=== PATIENT | female | born 1950 | race Caucasian/White ===

== ENCOUNTER 2018-02-06 16:09 | Observation (INO) ==
[2018-02-06] MEDS ORDERED: *HR* Metoprolol 5 MG/5 ML VIAL IVP ONE (16:21)
--- NOTE | 2018-02-06 16:25 | Emergency Department Note ---
Disposition Clinical Impression: Sinus tachycardia, Hypoxia Disposition: Admitted As Inpatient Condition: Good Time of Disposition: 17:00 (Dr Hernandez accepted her for borderline hypoxia and Tachyrrhythmia) Arrhythmia/Palpitations HPI - General Chief Complaint: ED General Medical Stated Complaint: fast heart rate at doctor Source: patient Limitations: no limitations - History of Present Illness HPI Narrative: Patient is a pleasant 67-year-old female with past medical history significant for HTN and ex tobacco abuse who is presenting to [facility] Emergency Room with a chief complaint off hypoxia and palpitation. Dr. Turpin called earlier and stated that she was hypoxic at 85 saturation on room air so he called the ambulance and sent her to the emergency room for evaluation. On arrival patient was found heartbeats at the 120 and she was totally has symptomatic. He denies using any street drugs or any stimulants and she is not aware of any prior history of racing heart like that. Patient denies any fever or chills. Pt also denies any eye pain or visual disturbances. There is no sore throat or facial or nasal congestion. There is no chest pain. No shortness of breath or cough. There is no abdominal pain, nausea, vomiting or diarrhea. No dysuria or flank pain. There is no muskulo-skeletal pain, arthralgia or back pain. Patient also denies rash or pruritus. There is no neurological manifestations, no headache, no vertigo or weakness. The patient also denies any depression, hallucinations and there are no homicidal or suicidal ideations. There is no polyuria or polydipsia. There is no easy bruising or bleeding. Review of other systems is otherwise negative except above. Pt Subjective Complaint: "heart racing" Onset (ago): hour(s) Duration: constant Severity: moderate - Related Data Home Medications Medication Instructions Recorded Confirmed Ergocalciferol (VITAMIN D2) 50,000 unit PO 2XW 02/06/18 02/06/18 [Vitamin D2] Hydrochlorothiazide [Microzide] 12.5 mg PO DAILY 02/06/18 02/06/18 Hydrocodone/Acetaminophen 1 each PO TID 02/06/18 02/06/18 [Hydrocodone-Acetamin 10-300 mg] Omeprazole [PriLOSEC] 20 mg PO DAILY 02/06/18 02/06/18 Potassium Chloride [Klor-Con 10 meq PO DAILY 02/06/18 02/06/18 Sprinkle] clonazePAM [Clonazepam] 0.5 mg PO TID 02/06/18 02/06/18 Allergies Allergy/AdvReac Type Severity Reaction Status Date / Time No Known Allergies Allergy Verified 05/03/17 18:33 All systems ED: reviewed and negative except as stated. Review of Systems: As Per HPI Constitutional: Denies: fever, chills Eyes: Denies: eye pain, eye discharge ENT ED: Denies: ear pain, throat pain Cardiovascular: Reports: palpitations. Denies: chest pain, dyspnea on exertion Respiratory: Denies: cough, dyspnea Gastrointestinal: Denies: abdominal pain, nausea, vomiting Genitourinary: Denies: urgency, dysuria, frequency Musculoskeletal: Denies: back pain, neck pain, joint swelling Past Medical History - Past Medical History Medical history: Reports: hypertension Psychiatric history: Reports: anxiety - Social History Smoking Status: Never smoker Smokeless Tobacco Status: No Alcohol use: Reports: none Drug use: Reports: none Physical Exam - General Limitations: no limitations General appearance: alert, in no apparent distress - Head Head exam: atraumatic, normocephalic, normal inspection - Eye Eye exam: Present: normal appearance, PERRL, EOMI - Expanded Eye Exam Pupils: Left: reactive - ENT ENT exam: normal exam, normal oropharynx, mucous membranes moist - Expanded ENT Exam External ear exam: Present: normal external inspection Mouth exam: Present: normal external inspection Teeth exam: Present: normal inspection Throat exam: Present: normal inspection - Neck Neck exam: Present: normal inspection, full ROM, trachea midline - Chest Chest inspection: Present: normal inspection, symmetric chest wall rise, other ( Became hypoxic with exertion to the mid 80s when she walked to the bathroom) - Respiratory Respiratory exam: Present: normal lung sounds bilaterally - Cardiovascular Cardiovascular exam: Present: regular rate, tachycardia, normal heart sounds - Abdominal Exam Abdominal exam: Present: soft, Non-Tender. Absent: tenderness, distention, guarding, rebound, rigidity - Extremities Exam Extremities exam: Present: normal inspection, full ROM. Absent: tenderness, pedal edema - Expanded Upper Extremity Exam Shoulder exam: Present: normal inspection, full ROM Arm exam: Present: normal inspection, full ROM Elbow exam: Present: normal inspection, full ROM Forearm/Wrist exam: Present: normal inspection, full ROM Hand exam: Present: normal inspection, full ROM Vascular exam: Normal: capillary refill, radial pulse - Expanded Lower Extremity Exam Hip/Pelvis exam: Present: normal inspection, full ROM Upper leg exam: Present: normal inspection, full ROM Knee exam: Present: normal inspection, full ROM Lower leg exam: Present: normal inspection, full ROM Ankle exam: Present: normal inspection, full ROM Foot/toe exam: Present: normal inspection, full ROM Neurovascular/Tendon exam: Absent: motor deficit, sensory deficit, tendon deficit - Back Exam Back exam: Present: normal inspection, full ROM. Absent: tenderness - Neurological Exam Neurological exam: Present: alert, oriented X3 - Expanded Neurological Exam Patient oriented to: Present: person, place, time Coma Scale Eye Opening: Spontaneous Coma Scale Motor Response: Obeys Commands Coma Scale Verbal Response: Oriented Coma Scale Total: 15 - Psychiatric Psychiatric exam: Present: normal affect, normal mood - Skin Skin exam: Present: warm, dry, intact, normal color Course Vital Signs Temperature 100.9 F H 02/06/18 16:13 Pulse Rate 136 02/06/18 16:13 Respiratory Rate 16 02/06/18 16:13 Blood Pressure 139/86 02/06/18 16:13 O2 Sat by Pulse Oximetry 93 02/06/18 16:13 Temperature 100.9 F H 02/06/18 16:13 Pulse Rate 106 02/06/18 18:42 Respiratory Rate 16 02/06/18 18:42 Blood Pressure 119/87 02/06/18 18:42 O2 Sat by Pulse Oximetry 92 02/06/18 18:42 Oxygen Delivery Oxygen Delivery Room Air Arrhythmia/Palpitations - [facility] Narrative Medical decision making narrative: Stated cardiopulmonary monitoring Stat labetalol - Differential Diagnosis Differential Diagnosis: Likely: palpitations, anxiety, sinus tachycardia, supraventricular tachycardia, undetermined arrhythmia - Medical Records Medical records reviewed: Yes I reviewed the patient's medical records. - Lab Data Lab results reviewed: Yes I reviewed the patient's lab results. Result diagrams: 02/06/18 16:41 02/06/18 16:41 Lab Results 02/06/18 02/06/18 02/06/18 Range/Units 16:41 16:41 16:41 WBC 9.8 (4.3-11.1) K/mcL RBC 4.65 (3.82-4.97) M/mcL Hgb 12.7 (11.5-15.4) g/dL Hct 38.5 (35.3-44.9) % MCV 82.8 L (83.0-100.0) fL MCH 27.3 L (28.0-33.3) pg MCHC 33.0 (31.6-35.5) g/dL RDW 13.0 (11.5-14.5) % Plt Count 333 (140-400) K/mcL MPV 9.4 (9.4-12.4) fL Immature Gran % 0.5 (0-4) % Seg Neutrophils % 69.1 % Lymphocytes % 23.8 % Monocytes % 4.5 % Eosinophils % 1.6 % Basophils % 0.5 % Neutrophils # 6.8 (1.6-8.9) K/mcL Lymphocytes # 2.3 (0.6-4.6) K/mcL Monocytes # 0.4 (0.0-1.3) K/mcL Eosinophils # 0.2 (0.0-0.6) K/mcL Basophils # 0.1 (0.0-0.2) K/mcL PT 13.0 H (9.4-12.1) Seconds INR 1.2 APTT 37.2 H (26.0-36.0) Seconds Sodium (136-145) mEq/L Potassium (3.5-5.1) mEq/L Chloride (98-107) mEq/L Carbon Dioxide (23-29) mEq/L BUN (8-23) mg/dL Creatinine (0.60-1.20) mg/dL Est GFR ( Amer) (> 60) Est GFR (Non-Af Amer) (> 60) BUN/Creatinine Ratio (6-26) Glucose (70-105) mg/dL Calculated Osmolality (280-300) Calcium (8.6-10.3) mg/dL Magnesium (1.6-2.6) mg/dL Troponin I (< 0.04) ng/mL B-Natriuretic Peptide 32 (Less than 100) pg/mL Urine Color (Yellow) Urine Clarity (Clear) Urine pH (5.0-8.0) pH Units Ur Specific [place] (1.010-1.025) Urine Protein (Neg-Trace) mg/dL Urine Glucose (UA) (Normal) mg/dL Urine Ketones (Negative) mg/dL Urine Blood (Negative) Urine Nitrite (Negative) Urine Bilirubin (Negative) Urine Urobilinogen (Normal) mg/dL Ur Leukocyte Esterase (Negative) Urine Microscopic RBC (0-3) per hpf Urine Microscopic WBC (0-3) per hpf Ur Squamous Epith Cells (None-Few) per lpf Urine Bacteria (None-Few) per hpf Granular Casts (None Seen) per lpf Ur Culture Indicated? (NO) Urine Opiates Screen (Ghxcdq=328) ng/mL Ur Oxycodone Screen (Cutoff= 100) ng/mL Ur Barbiturates Screen (Zrlqdj=382) ng/mL Ur Phencyclidine Scrn (Cutoff=25) ng/mL Ur Amphetamines Screen (Yehwhv=6566) ng/mL U Benzodiazepines Scrn (Codgfx=444) ng/mL Urine Cocaine Screen (Cutoff= 300) ng/mL U Marijuana (THC) Screen (Cutoff = 50) ng/mL Ur Drug Screen Interp 02/06/18 02/06/18 02/06/18 Range/Units 16:41 16:41 17:00 WBC (4.3-11.1) K/mcL RBC (3.82-4.97) M/mcL Hgb (11.5-15.4) g/dL Hct (35.3-44.9) % MCV (83.0-100.0) fL MCH (28.0-33.3) pg MCHC (31.6-35.5) g/dL RDW (11.5-14.5) % Plt Count (140-400) K/mcL MPV (9.4-12.4) fL Immature Gran % (0-4) % Seg Neutrophils % % Lymphocytes % % Monocytes % % Eosinophils % % Basophils % % Neutrophils # (1.6-8.9) K/mcL Lymphocytes # (0.6-4.6) K/mcL Monocytes # (0.0-1.3) K/mcL Eosinophils # (0.0-0.6) K/mcL Basophils # (0.0-0.2) K/mcL PT (9.4-12.1) Seconds INR APTT (26.0-36.0) Seconds Sodium 137 (136-145) mEq/L Potassium 3.0 L (3.5-5.1) mEq/L Chloride 99 (98-107) mEq/L Carbon Dioxide 28 (23-29) mEq/L BUN 16 (8-23) mg/dL Creatinine 0.96 (0.60-1.20) mg/dL Est GFR ( Amer) > 60 (> 60) Est GFR (Non-Af Amer) 58 L (> 60) BUN/Creatinine Ratio 17 (6-26) Glucose 99 (70-105) mg/dL Calculated Osmolality 285 (280-300) Calcium 9.4 (8.6-10.3) mg/dL Magnesium 1.5 L (1.6-2.6) mg/dL Troponin I < 0.03 (< 0.04) ng/mL B-Natriuretic Peptide (Less than 100) pg/mL Urine Color (Yellow) Urine Clarity (Clear) Urine pH (5.0-8.0) pH Units Ur Specific [place] (1.010-1.025) Urine Protein (Neg-Trace) mg/dL Urine Glucose (UA) (Normal) mg/dL Urine Ketones (Negative) mg/dL Urine Blood (Negative) Urine Nitrite (Negative) Urine Bilirubin (Negative) Urine Urobilinogen (Normal) mg/dL Ur Leukocyte Esterase (Negative) Urine Microscopic RBC (0-3) per hpf Urine Microscopic WBC (0-3) per hpf Ur Squamous Epith Cells (None-Few) per lpf Urine Bacteria (None-Few) per hpf Granular Casts (None Seen) per lpf Ur Culture Indicated? (NO) Urine Opiates Screen Positive H (Nmnrgo=055) ng/mL Ur Oxycodone Screen Negative (Cutoff= 100) ng/mL Ur Barbiturates Screen Negative (Ewbzpu=449) ng/mL Ur Phencyclidine Scrn Negative (Cutoff=25) ng/mL Ur Amphetamines Screen Negative (Higzzw=6298) ng/mL U Benzodiazepines Scrn Negative (Agffgc=116) ng/mL Urine Cocaine Screen Negative (Cutoff= 300) ng/mL U Marijuana (THC) Screen Negative (Cutoff = 50) ng/mL Ur Drug Screen Interp See Below 02/06/18 Range/Units 17:00 WBC (4.3-11.1) K/mcL RBC (3.82-4.97) M/mcL Hgb (11.5-15.4) g/dL Hct (35.3-44.9) % MCV (83.0-100.0) fL MCH (28.0-33.3) pg MCHC (31.6-35.5) g/dL RDW (11.5-14.5) % Plt Count (140-400) K/mcL MPV (9.4-12.4) fL Immature Gran % (0-4) % Seg Neutrophils % % Lymphocytes % % Monocytes % % Eosinophils % % Basophils % % Neutrophils # (1.6-8.9) K/mcL Lymphocytes # (0.6-4.6) K/mcL Monocytes # (0.0-1.3) K/mcL Eosinophils # (0.0-0.6) K/mcL Basophils # (0.0-0.2) K/mcL PT (9.4-12.1) Seconds INR APTT (26.0-36.0) Seconds Sodium (136-145) mEq/L Potassium (3.5-5.1) mEq/L Chloride (98-107) mEq/L Carbon Dioxide (23-29) mEq/L BUN (8-23) mg/dL Creatinine (0.60-1.20) mg/dL Est GFR ( Amer) (> 60) Est GFR (Non-Af Amer) (> 60) BUN/Creatinine Ratio (6-26) Glucose (70-105) mg/dL Calculated Osmolality (280-300) Calcium (8.6-10.3) mg/dL Magnesium (1.6-2.6) mg/dL Troponin I (< 0.04) ng/mL B-Natriuretic Peptide (Less than 100) pg/mL Urine Color Yellow (Yellow) Urine Clarity Clear (Clear) Urine pH 5.5 (5.0-8.0) pH Units Ur Specific [place] 1.010 (1.010-1.025) Urine Protein Negative (Neg-Trace) mg/dL Urine Glucose (UA) Normal (Normal) mg/dL Urine Ketones Negative (Negative) mg/dL Urine Blood Trace-intact H (Negative) Urine Nitrite Negative (Negative) Urine Bilirubin Negative (Negative) Urine Urobilinogen Normal (Normal) mg/dL Ur Leukocyte Esterase Negative (Negative) Urine Microscopic RBC 0-3 (0-3) per hpf Urine Microscopic WBC 0-3 (0-3) per hpf Ur Squamous Epith Cells Moderate H (None-Few) per lpf Urine Bacteria Moderate H (None-Few) per hpf Granular Casts Few H (None Seen) per lpf Ur Culture Indicated? NO (NO) Urine Opiates Screen (Wlsffm=574) ng/mL Ur Oxycodone Screen (Cutoff= 100) ng/mL Ur Barbiturates Screen (Rhfgih=354) ng/mL Ur Phencyclidine Scrn (Cutoff=25) ng/mL Ur Amphetamines Screen (Oybizf=2813) ng/mL U Benzodiazepines Scrn (Hdakeg=206) ng/mL Urine Cocaine Screen (Cutoff= 300) ng/mL U Marijuana (THC) Screen (Cutoff = 50) ng/mL Ur Drug Screen Interp - Radiology Data Radiology results reviewed: Yes I reviewed the patient's radiology results. - EKG Data EKG attestation: Yes I reviewed and interpreted this EKG. Rate: tachycardia Rhythm: arrhythmia [place]/QRS: normal
[2018-02-06 16:49] LABS: Basophils # 0.1 K/mcL (0.0-0.2); Basophils % 0.5 %; Eosinophils # 0.2 K/mcL (0.0-0.6); Eosinophils % 1.6 %; Hematocrit 38.5 % (35.3-44.9); Hemoglobin 12.7 g/dL (11.5-15.4); Immature Granulocytes % 0.5 % (0-4); Lymphocytes # 2.3 K/mcL (0.6-4.6); Lymphocytes % 23.8 %; Mean Corpuscular Hemoglobin 27.3 pg (28.0-33.3); Mean Corpuscular Volume 82.8 fL (83.0-100.0); Mean Platelet Volume 9.4 fL (9.4-12.4); Monocytes # 0.4 K/mcL (0.0-1.3); Monocytes % 4.5 %; Neutrophils # 6.8 K/mcL (1.6-8.9); Platelet Count 333 K/mcL (140-400); Red Blood Count 4.65 M/mcL (3.82-4.97); Segmented Neutrophils % 69.1 %
[2018-02-06 17:06] LABS: BUN/Creatinine Ratio 17 (6-26); Blood Urea Nitrogen 16 mg/dL (8-23); Calcium 9.4 mg/dL (8.6-10.3); Carbon Dioxide 28 mEq/L (23-29); Chloride 99 mEq/L (98-107); Glucose 99 mg/dL (70-105); Osmolality,Calculated 285 (280-300); Sodium 137 mEq/L (136-145); eGFR For African Americans > 60 (> 60); eGFR For Non-African Americans 58 (> 60)
[2018-02-06 17:09] LABS: Bilirubin,Urine Negative (Negative); Blood,Urine Trace-intact (Negative); Clarity,Urine Clear (Clear); Color,Urine Yellow (Yellow); Glucose,Urine (UA) Normal (Normal); Ketones,Urine Negative (Negative); Leukocyte Esterase,Urine Negative (Negative); Nitrite,Urine Negative (Negative); PH,Urine 5.5 pH Units (5.0-8.0); Protein,Urine Negative (Neg-Trace); Urobilinogen,Urine Normal (Normal)
[2018-02-06 17:13] LABS: INR 1.2; Troponin I < 0.03 ng/mL (< 0.04)
[2018-02-06 17:16] LABS: Bacteria,Urine Moderate per hpf (None-Few); Granular Casts,Urine Few per lpf (None Seen); RBC,Urine 0-3 per hpf (0-3); Squamous Epithelial Cell,Urine Moderate per lpf (None-Few); WBC,Urine 0-3 per hpf (0-3)
[2018-02-06 17:16] LABS: Activated Partial Thrombo Time 37.2 Seconds (26.0-36.0)
[2018-02-06 17:17] LABS: Amphetamine Screen,Urine Negative ng/mL (Cutoff=1000); Barbiturate Screen,Urine Negative ng/mL (Cutoff=200); Benzodiazepines Screen,Urine Negative ng/mL (Cutoff=200); Cannabinoid Screen,Urine Negative ng/mL (Cutoff = 50); Cocaine Screen,Urine Negative ng/mL (Cutoff= 300); Opiate Screen,Urine Positive ng/mL (Cutoff=300); Phencyclidine Screen,Urine Negative ng/mL (Cutoff=25)
[2018-02-06] MEDS ORDERED: Naloxone 0.4 MG/ML INJ IVP PRN (21:33)
[2018-02-06] MEDS: *HR* HYDROcodone/Acet 10/325 mg TABLET PO SCH (22:41)
[2018-02-06] MEDS: clonazePAM 0.5 MG TABLET PO SCH (22:41)
[2018-02-07 06:04] LABS: Basophils % 0.2 %; Eosinophils # 0.2 K/mcL (0.0-0.6); Eosinophils % 2.1 %; Hematocrit 35.1 % (35.3-44.9); Hemoglobin 11.6 g/dL (11.5-15.4); Immature Granulocytes % 0.4 % (0-4); Lymphocytes # 2.4 K/mcL (0.6-4.6); Lymphocytes % 30.2 %; Mean Corpuscular Hemoglobin 27.5 pg (28.0-33.3); Mean Corpuscular Volume 83.2 fL (83.0-100.0); Mean Platelet Volume 9.9 fL (9.4-12.4); Monocytes # 0.6 K/mcL (0.0-1.3); Monocytes % 6.9 %; Neutrophils # 4.9 K/mcL (1.6-8.9); Platelet Count 264 K/mcL (140-400); Red Blood Count 4.22 M/mcL (3.82-4.97); Segmented Neutrophils % 60.2 %
[2018-02-07 06:17] LABS: INR 1.2; Prothrombin Time 13.2 Seconds (9.4-12.1)
[2018-02-07 06:31] LABS: BUN/Creatinine Ratio 19 (6-26); Blood Urea Nitrogen 17 mg/dL (8-23); Calcium 9.4 mg/dL (8.6-10.3); Carbon Dioxide 31 mEq/L (23-29); Chloride 102 mEq/L (98-107); Glucose 101 mg/dL (70-105); Magnesium 1.7 mg/dL (1.6-2.6); Osmolality,Calculated 292 (280-300); Phosphorous 3.9 mg/dL (2.7-4.5); Potassium 3.1 mEq/L (3.5-5.1); Sodium 140 mEq/L (136-145); eGFR For African Americans > 60 (> 60); eGFR For Non-African Americans > 60 (> 60)
--- NOTE | 2018-02-07 07:30 | Electrocardiograph Report ---
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
[2018-02-07] MEDS: clonazePAM 0.5 MG TABLET PO SCH (08:04)
[2018-02-07] MEDS: *HR* HYDROcodone/Acet 10/325 mg TABLET PO SCH (08:07)
[2018-02-07 08:32] LABS: Bilirubin,Urine Negative (Negative); Blood,Urine Negative (Negative); Clarity,Urine Clear (Clear); Color,Urine Yellow (Yellow); Glucose,Urine (UA) Normal (Normal); Ketones,Urine Negative (Negative); Leukocyte Esterase,Urine Negative (Negative); Nitrite,Urine Negative (Negative); PH,Urine 5.5 pH Units (5.0-8.0); Protein,Urine Negative (Neg-Trace); Urobilinogen,Urine Normal (Normal)
[2018-02-07] MEDS ORDERED: Cholecalciferol (D-3) 1,000 UNIT TABLET PO SCH (09:00)
[2018-02-07] MEDS ORDERED: hydroCHLOROthiazide 25 MG TABLET PO SCH (09:00)
[2018-02-07 10:57] VITALS: BP 96/60
--- NOTE | 2018-02-07 11:50 | Internal Med History&Physical ---
Date of Encounter: 02/07/18 Time of Encounter: 11:15 Assessment and Plan (1) Sinus tachycardia Current visit: Yes Status: Acute Now resolved with heart rate 85/m. TSH was normal at 1.76 on 10/22/2016. Will not workup further at this time. (2) Hypoxia Current visit: Yes Status: Resolved Now resolved. Room air oximetry will be checked on 6 minute walk prior to discharge. (3) Hypokalemia Current visit: Yes Status: Acute She reports she has not taken her supplemental potassium for 2 days at home because she simply "missed the dose". Will order supplemental potassium bolus and increase home dose. (4) Hypomagnesemia Current visit: Yes Status: Acute Will order supplemental magnesium. (5) Hypertension Current visit: Yes Status: Chronic Continue diuretic. Qualifiers: Hypertension type: essential hypertension Qualified Code(s): I10 - Essential (primary) hypertension (6) Low vitamin D level Current visit: Yes Status: Acute Vitamin D level was 9 on 10/22/2016. Her PCP can monitor this. Internal Medicine - H&P: HPI Chief complaint: Hypoxemia, tachycardia Admitted From: Emergency Dept Plans for Post Hospital Care: Home History of present illness: Ms. Guido is a 67 year old female who was sent to emergency room by squad from her PCP Dr. Sibley's office after she was found to have oxygen saturation 85% on room air. She denied feeling dyspnea and reports she had gone to his office for routine follow-up visit. She was evaluated emergency room and was found to have satisfactory oxygen level but at heart rate 120/m. She was asymptomatic from the tachycardia. She was admitted to [facility] floor for ongoing care needs. Her cardiovascular history significant for hypertension but she denies [place] heart failure angina DVT or pulmonary embolus. Her respiratory history is significant for essentially being a lifelong nonsmoker and having no known chronic lung disease. Past Med Surg Social Fam HX - Past Medical History Medical history: hypertension Psychiatric history: anxiety - Past Surgical History Additional surgical history: x3 - Social History Smoking Status: Never smoker Smokeless Tobacco Status: No Alcohol use: none Drug use: none Internal Medicine - H&P: Meds Ergocalciferol (VITAMIN D2) [Vitamin D2] 50,000 unit PO 2XW 02/06/18 [History] Hydrochlorothiazide [Microzide] 12.5 mg PO DAILY 02/06/18 [History] Hydrocodone/Acetaminophen [Hydrocodone-Acetamin 10-300 mg] 1 each PO TID [History] Omeprazole [PriLOSEC] 20 mg PO DAILY 02/06/18 [History] Potassium Chloride [Klor-Con Sprinkle] 10 meq PO DAILY 02/06/18 [History] clonazePAM [Clonazepam] 0.5 mg PO TID 02/06/18 [History] 3 Allergy/AdvReac Type Severity Reaction Status Date / Time No Known Allergies Allergy Verified 05/03/17 18:33 All Systems PM: A 10-system review of systems was performed and is negative for pertinent findings except as documented above in the HPI. Review of systems: Gen.: She states her weight has been stable the past few months Cardiovascular: As per history of present illness Respiratory: As per history of present illness GI: She has had cholecystectomy. She denies disorders of her liver or exocrine pancreas : She denies hematuria dysuria or kidney stones Neurologic: She denies large distribution strokes or seizures. Endocrine: She denies diabetes thyroid disease or hyperlipidemia Hematology/oncology: She reports history of anemia. She was not anemic on labs in emergency room. She denies internal malignancies or other blood disorders Psychiatric: She has anxiety and depression but denies other mental health diagnoses. [place] skeletal: She denies arthritis gout or other bone joint or muscle disorders. - Constitutional Vitals: Temp Pulse Resp BP Pulse Ox 97.7 F 85 17 96/60 92 02/07/18 10:53 02/07/18 10:53 02/07/18 10:53 02/07/18 10:53 02/07/18 10:53 Exam: Gen.: She is a well-developed overweight female lying in bed who appears in no acute distress HEENT: Head is atraumatic and normocephalic. Eyes: EOMI. There is no scleral icterus. Mouth: Mucosa is moist. Neck: Supple and nontender. There is no thyromegaly or adenopathy noted. Heart: Regular without murmurs gallops or ectopics Lungs: No wheezes or crackles are heard. Abdomen: Soft and nontender. No masses or guarding are noted. Extremities: There is no cyanosis edema or clubbing noted. Dorsalis pedis and posterior tibial pulses are 1 over 2 bilaterally. Neurologic: Mental status: She is talkative and a good historian. Cranial nerves: Smile is symmetric. Forehead wrinkles bilaterally. Tongue protrudes midline. EOMI. Motor: There is no pronator drift. Cerebellar: Finger to nose is intact bilaterally. Skin: Warm and dry Internal Med - H&P Results - Labs CBC & Chem 7: 02/07/18 05:03 02/07/18 05:03 Labs: Short CBC 02/07/18 Range/Units 05:03 WBC 8.1 (4.3-11.1) K/mcL Hgb 11.6 (11.5-15.4) g/dL Hct 35.1 L (35.3-44.9) % Plt Count 264 (140-400) K/mcL Neutrophils # 4.9 (1.6-8.9) K/mcL BMP 02/07/18 05:03 Sodium 140 Potassium 3.1 L Chloride 102 Carbon Dioxide 31 H BUN 17 Creatinine 0.90 Glucose 101 Calcium 9.4 Cardiac Enzymes 02/06/18 02/07/18 02/07/18 Range/Units 22:30 05:03 10:22 Troponin I < 0.03 < 0.03 < 0.03 (< 0.04) ng/mL Urine 02/07/18 Range/Units 08:10 Urine Color Yellow (Yellow) Urine Clarity Clear (Clear) Urine pH 5.5 (5.0-8.0) pH Units Ur Specific [place] 1.020 (1.010-1.025) Urine Protein Negative (Neg-Trace) mg/dL Urine Glucose (UA) Normal (Normal) mg/dL
[2018-02-07] MEDS ORDERED: Magnesium Oxide 400 MG TABLET PO ONE (12:00)
--- NOTE | 2018-02-07 12:01 | Discharge Summary ---
Date of Encounter: 02/07/18 Time of Encounter: 11:15 - Discharge Diagnosis (1) Sinus tachycardia Priority: Primary Status: Resolved (2) Hypoxia Priority: Secondary Status: Resolved (3) Hypokalemia Priority: Secondary Status: Acute (4) Hypomagnesemia Priority: Secondary Status: Acute (5) Hypertension Priority: Secondary Status: Chronic Qualifiers: Hypertension type: essential hypertension Qualified Code(s): I10 - Essential (primary) hypertension (6) Low vitamin D level Priority: Secondary Status: Acute Hospital course: Ms. Guido is a 67 year old female who was sent to emergency room by squad from her PCP Dr. Sibley's office after she was found to have oxygen saturation 85% on room air. She denied feeling dyspnea and reports she had gone to his office for routine follow-up visit. She was evaluated emergency room and was found to have satisfactory oxygen level but at heart rate 120/m. She was asymptomatic from the tachycardia. She was admitted to [facility] for ongoing care needs. Initial orders were written by the emergency room physician. I saw her on February 07 and performed the history and physical. Sinus tachycardia resolved shortly after coming to emergency room. She remained asymptomatic. No hypoxemia was noted during hospitalization. Room air oximetry will be checked on 6 minute walk prior to discharge. She had no leg edema, dyspnea, or chest pain to suggest pulmonary embolism. Supplemental potassium was given during hospitalization. She will have home dose increased to 10 mEq twice a day. Supplemental magnesium was given during hospitalization. She will be given a seven-day supply of magnesium oxide 400 mg daily. Her PCP can monitor labs. She will follow with her PCP Dr. Turpin within 1 week. - Time Spent with Patient Total time spent providing and/or coordinating discharge services: - Discharge Medications Prescriptions: Magnesium Oxide [Magnesium] 400 mg PO DAILY #7 tablet Potassium Chloride 10 meq PO BIDWM #60 tab.er.prt Home Medications: Ergocalciferol (VITAMIN D2) [Vitamin D2] 50,000 unit PO 2XW 02/06/18 [History] Hydrochlorothiazide [Microzide] 12.5 mg PO DAILY 02/06/18 [History] Hydrocodone/Acetaminophen [Hydrocodone-Acetamin 10-300 mg] 1 each PO TID [History] Omeprazole [PriLOSEC] 20 mg PO DAILY 02/06/18 [History] clonazePAM [Clonazepam] 0.5 mg PO TID 02/06/18 [History] Magnesium Oxide [Magnesium] 400 mg PO DAILY #7 tablet 02/07/18 [Rx] Potassium Chloride 10 meq PO BIDWM #60 tab.er.prt 02/07/18 [Rx] Allergies/Adverse Reactions: 3 Allergy/AdvReac Type Severity Reaction Status Date / Time No Known Allergies Allergy Verified 05/03/17 18:33 Date of admission: 02/06/18 18:28 Primary care physician: Margarito Turpin MD - Constitutional Vitals: Temp Pulse Resp BP Pulse Ox 97.7 F 85 17 96/60 92 02/07/18 10:53 02/07/18 10:53 02/07/18 10:53 02/07/18 10:53 02/07/18 10:53 - Patient Status Disposition: Home, Self-Care Condition: Good - Discharge Instructions Follow Up With: Margarito Turpin MD [Primary Care Provider] - 1 week - Diet and Activity Activity: resume usual activities as tolerated Diet: advance to your usual diet
== END 2018-02-07 13:37 | disposition home or self-care (01) ==
LOC: EMEROOPIK 16:09 → INPPIK 16:09
PROVIDERS: ADMIT Internal Medicine; ATTEND Internal Medicine

== ENCOUNTER 2018-11-09 11:10 | Observation (INO) ==
--- NOTE | 2018-11-09 11:52 | Emergency Department Note ---
Disposition Clinical Impression: Hypoxemia Disposition: Admitted As Inpatient Condition: Fair SOB HPI - General Chief Complaint: ED General Medical Stated Complaint: low o2 sat Time Seen by Provider: 11/09/18 11:51 Source: patient, other (Dr. Margarito Turpin) Mode of arrival: private vehicle Limitations: physical limitation Nursing Notes Reviewed: Yes Vital Signs Reviewed: Yes - History of Present Illness Patient presents to the ED on referral from her PCP office for hypoxemia noted during routine office visit. Dr. Margarito Turpin called to say he was sending the patient over after she showed up for a routine follow-up appointment and was found to have oxygen saturations of 88% on room air. She denied any complaints of chest pain, shortness of breath or other concerns. He stated they placed her on oxygen with improvement should but she would desaturate again with exertion so he sent her here for further evaluation. She does not wear oxygen at home is not having any history of any lung problems. On arrival she does admit to having a dry cough for 1 week and some increased thirst. She is concerned she may be a diabetic. She has had some sneezing and rhinorrhea. She has a chronic sore throat that is not new. She again denies any chest pain or shortness of breath. No abdominal pain, nausea, vomiting, diarrhea or constipation. No fever or chills. She states her great grandkids have recently been sick with colds. On arrival she is afebrile, mildly tachycardic at 103 but hemodynamically stable and afebrile and oxygen saturation of 90% on room air. This improved immediately to 98% after being placed on 2 L. - Related Data Home Medications Medication Instructions Recorded Confirmed Ergocalciferol (VITAMIN D2) 50,000 unit PO 2XW 02/06/18 11/09/18 [Vitamin D2] Hydrochlorothiazide [Microzide] 12.5 mg PO DAILY 02/06/18 11/09/18 Hydrocodone/Acetaminophen 1 each PO TID 02/06/18 11/09/18 [Hydrocodone-Acetamin 10-300 mg] Omeprazole [PriLOSEC] 20 mg PO DAILY 02/06/18 11/09/18 clonazePAM [Clonazepam] 0.5 mg PO TID 02/06/18 11/09/18 Previous Rx's Medication Instructions Recorded Potassium Chloride 10 meq PO BIDWM #60 tab.er.prt 02/07/18 Allergies Allergy/AdvReac Type Severity Reaction Status Date / Time No Known Allergies Allergy Verified 10/07/18 16:08 Constitutional: Denies: fever, chills, weakness, weight change Eyes: Denies: eye pain, eye discharge, vision change ENT ED: Reports: congestion. Denies: ear pain, throat pain, dental pain, hearing loss, epistaxis, dysphagia Cardiovascular: Denies: chest pain, palpitations, dyspnea on exertion, edema, syncope Respiratory: Reports: cough. Denies: dyspnea, wheezes, hemoptysis, stridor Gastrointestinal: Denies: abdominal pain, nausea, vomiting, diarrhea, constipa tion, hematemesis, melena, hematochezia Genitourinary: Denies: dysuria, frequency, hematuria, discharge Musculoskeletal: Denies: back pain, neck pain, arthralgia, myalgia Integumentary: Denies: rash, abrasion, lesions Neurological: Denies: headache, weakness, numbness, paresthesias, confusion, abnormal gait, vertigo Psychiatric: Denies: anxiety, depression, suicidal thoughts, homicidal thoughts, auditory hallucinations, visual hallucinations Endocrine: Denies: fatigue Hematological/Lymphatic: Denies: easy bleeding, easy bruising Allergic/Immunologic: Denies: facial swelling, urticaria Past Medical History - Past Medical History Medical history: Reports: hypertension, other Psychiatric history: Reports: anxiety CONDENSER SETTER history: Reports: no CONDENSER SETTER history - Social History Smoking Status: 2nd Hand Smoke Exposure Smokeless Tobacco Status: No Alcohol use: Reports: none Drug use: Reports: none Physical Exam - General Limitations: physical limitation General appearance: alert, in no apparent distress - Head Head exam: atraumatic, normocephalic, normal inspection - Eye Eye exam: Present: normal appearance, PERRL, EOMI - ENT ENT exam: normal exam, normal oropharynx, mucous membranes moist - Neck Neck exam: Present: normal inspection, full ROM, trachea midline - Chest Chest inspection: Present: normal inspection, symmetric chest wall rise - Respiratory Respiratory exam: Present: normal lung sounds bilaterally - Cardiovascular Cardiovascular exam: Present: regular rate, normal rhythm, normal heart sounds - Abdominal Exam Abdominal exam: Present: soft, Non-Tender. Absent: tenderness, distention, guarding, rebound, rigidity - Extremities Exam Extremities exam: Present: normal inspection, full ROM. Absent: tenderness, pedal edema - Back Exam Back exam: Present: normal inspection, full ROM. Absent: tenderness - Neurological Exam Neurological exam: Present: alert, oriented X3 - Psychiatric Psychiatric exam: Present: normal affect, normal mood - Skin Skin exam: Present: warm, dry, intact, normal color Course Course Narrative: Impression presents the ED with hypoxemia found on routine follow-up by her PCP. She was satting 90% on room air on arrival here but improved to 98 on 2 L of oxygen. Blood pressure is elevated and she she also had an episode of significant tachycardia during my assessment for which she was asymptomatic. Physical exam is unremarkable. Will check routine lab work and obtain chest x- ray. - Reevaluation(s) Reevaluation #1: EKG showed sinus tachycardia with first-degree block. Laboratory studies show a potassium of 3.2 but the remainder BMP and CBC are normal. Lactic acid, BNP and troponin are normal as well. Chest x-ray showed the possibility of a dilated descending aorta is so CT of the chest be performed for further evaluation. Will also check ABG. We will give oral potassium. Reevaluation #2: CT of the chest showed only borderline dilated ascending aorta at 4.7 cm. Remainder of study was unremarkable. Patient's heart rate improved with IV fluids. She remains hypoxic asymptomatic. Discussed with patient admission for further evaluation and determination of home oxygen needs and she is in agreement. I spoke to the hospitalist on-call, Dr. Hernandez who has accepted the patient. Vital Signs O2 Sat by Pulse Oximetry 90 11/09/18 11:12 Temperature 97.6 F 11/10/18 02:00 Pulse Rate 80 11/10/18 02:00 Respiratory Rate 18 11/10/18 02:00 Blood Pressure 106/63 11/10/18 02:00 O2 Sat by Pulse Oximetry 96 11/10/18 02:00 Oxygen Delivery Oxygen Delivery Nasal Cannula Shortness of Breath/Dyspnea - Differential Diagnosis Likely: congestive heart failure, pneumonia, pulmonary embolism - Medical Records Medical records reviewed: Yes I reviewed the patient's medical records. - Lab Data Lab results reviewed: Yes I reviewed the patient's lab results. Result diagrams: 11/09/18 11:55 11/09/18 11:55 Lab Results 11/09/18 11/09/18 11/09/18 Range/Units 11:55 11:55 11:55 WBC 8.8 (4.3-11.1) K/mcL RBC 4.39 (3.82-4.97) M/mcL Hgb 12.1 (11.5-15.4) g/dL Hct 37.0 (35.3-44.9) % MCV 84.3 (83.0-100.0) fL MCH 27.6 L (28.0-33.3) pg MCHC 32.7 (31.6-35.5) g/dL RDW 13.3 (11.5-14.5) % Plt Count 290 (140-400) K/mcL MPV 9.2 L (9.4-12.4) fL Immature Gran % 0.3 (0-4) % Seg Neutrophils % 63.6 % Lymphocytes % 28.5 % Monocytes % 5.4 % Eosinophils % 1.7 % Basophils % 0.5 % Neutrophils # 5.6 (1.6-8.9) K/mcL Lymphocytes # 2.5 (0.6-4.6) K/mcL Monocytes # 0.5 (0.0-1.3) K/mcL Eosinophils # 0.2 (0.0-0.6) K/mcL Basophils # 0.0 (0.0-0.2) K/mcL D-Dimer (0-500) ng/mLFEU Sample Site ABG pH (7.32-7.45) pH Units ABG pCO2 (35-45) mmHg ABG pO2 (85-104) mmHg ABG HCO3 (21-27) mEq/L ABG Total CO2 (20-26) mEq/L ABG O2 Saturation (95-98) % ABG Base Excess (-2 to 3) mEq/L Marco Test O2 Delivery Device Inspired O2 (1-15=lpm qf21-820=%) Sodium 137 (136-145) mEq/L Potassium 3.2 L (3.5-5.1) mEq/L Chloride 98 (98-107) mEq/L Carbon Dioxide 31 H (23-29) mEq/L BUN 18 (8-23) mg/dL Creatinine 0.92 (0.60-1.20) mg/dL Est GFR ( Amer) > 60 (> 60) Est GFR (Non-Af Amer) > 60 (> 60) BUN/Creatinine Ratio 20 (6-26) Glucose 106 H (70-105) mg/dL Calculated Osmolality 286 (280-300) Lactic Acid 1.2 (0.5-2.2) mmol/L Calcium 9.3 (8.6-10.3) mg/dL Troponin I < 0.03 (< 0.04) ng/mL B-Natriuretic Peptide (Less than 100) pg/mL 11/09/18 11/09/18 11/09/18 Range/Units 11:55 11:55 12:55 WBC (4.3-11.1) K/mcL RBC (3.82-4.97) M/mcL Hgb (11.5-15.4) g/dL Hct (35.3-44.9) % MCV (83.0-100.0) fL MCH (28.0-33.3) pg MCHC (31.6-35.5) g/dL RDW (11.5-14.5) % Plt Count (140-400) K/mcL MPV (9.4-12.4) fL Immature Gran % (0-4) % Seg Neutrophils % % Lymphocytes % % Monocytes % % Eosinophils % % Basophils % % Neutrophils # (1.6-8.9) K/mcL Lymphocytes # (0.6-4.6) K/mcL Monocytes # (0.0-1.3) K/mcL Eosinophils # (0.0-0.6) K/mcL Basophils # (0.0-0.2) K/mcL D-Dimer 297 (0-500) ng/mLFEU Sample Site ABG pH (7.32-7.45) pH Units ABG pCO2 (35-45) mmHg ABG pO2 (85-104) mmHg ABG HCO3 (21-27) mEq/L ABG Total CO2 (20-26) mEq/L ABG O2 Saturation (95-98) % ABG Base Excess (-2 to 3) mEq/L Marco Test O2 Delivery Device Inspired O2 (1-15=lpm pk44-633=%) Sodium (136-145) mEq/L Potassium (3.5-5.1) mEq/L Chloride (98-107) mEq/L Carbon Dioxide (23-29) mEq/L BUN (8-23) mg/dL Creatinine (0.60-1.20) mg/dL Est GFR ( Amer) (> 60) Est GFR (Non-Af Amer) (> 60) BUN/Creatinine Ratio (6-26) Glucose (70-105) mg/dL Calculated Osmolality (280-300) Lactic Acid 2.0 (0.5-2.2) mmol/L Calcium (8.6-10.3) mg/dL Troponin I (< 0.04) ng/mL B-Natriuretic Peptide 28 (Less than 100) pg/mL 11/09/18 Range/Units 14:46 WBC (4.3-11.1) K/mcL RBC (3.82-4.97) M/mcL Hgb (11.5-15.4) g/dL Hct (35.3-44.9) % MCV (83.0-100.0) fL MCH (28.0-33.3) pg MCHC (31.6-35.5) g/dL RDW (11.5-14.5) % Plt Count (140-400) K/mcL MPV (9.4-12.4) fL Immature Gran % (0-4) % Seg Neutrophils % % Lymphocytes % % Monocytes % % Eosinophils % % Basophils % % Neutrophils # (1.6-8.9) K/mcL Lymphocytes # (0.6-4.6) K/mcL Monocytes # (0.0-1.3) K/mcL Eosinophils # (0.0-0.6) K/mcL Basophils # (0.0-0.2) K/mcL D-Dimer (0-500) ng/mLFEU Sample Site R Brach ABG pH 7.45 (7.32-7.45) pH Units ABG pCO2 38 (35-45) mmHg ABG pO2 71 L (85-104) mmHg ABG HCO3 26 (21-27) mEq/L ABG Total CO2 27 H (20-26) mEq/L ABG O2 Saturation 95 (95-98) % ABG Base Excess 2 (-2 to 3) mEq/L Marco Test N/A O2 Delivery Device Cannula Inspired O2 3.0 (1-15=lpm fa01-299=%) Sodium (136-145) mEq/L Potassium (3.5-5.1) mEq/L Chloride (98-107) mEq/L Carbon Dioxide (23-29) mEq/L BUN (8-23) mg/dL Creatinine (0.60-1.20) mg/dL Est GFR ( Amer) (> 60) Est GFR (Non-Af Amer) (> 60) BUN/Creatinine Ratio (6-26) Glucose (70-105) mg/dL Calculated Osmolality (280-300) Lactic Acid (0.5-2.2) mmol/L Calcium (8.6-10.3) mg/dL Troponin I (< 0.04) ng/mL B-Natriuretic Peptide (Less than 100) pg/mL - Radiology Data Radiology results reviewed: Yes I reviewed the patient's radiology results. ITS Impressions Chest X-Ray 11/09/18 11:28 IMPRESSION: Possible dilation of the ascending aorta, although the appearance of the mediastinum is similar in comparison to prior exam. Further evaluation with CT aortogram of the chest is recommended. D/ / Saran Aranda MD / Saran Aranda MD Interpreting Provider: Saran Aranda MD Chest CTA 11/09/18 12:37 IMPRESSION: Borderline dilated ascending aorta measuring 4.7 cm in greatest dimension. 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 D/ / Herrera Segal MD / Herrera Segal MD Interpreting Provider: Herrera Segal MD - EKG Data EKG attestation: Yes I reviewed and interpreted this EKG. EKG shows normal: Reports: sinus rhythm Rate: Reports: tachycardia (rate 101) [place]/QRS: Reports: IVCD Heart block present: Reports: 1st Degree
[2018-11-09 12:01] LABS: Basophils % 0.5 %; Eosinophils # 0.2 K/mcL (0.0-0.6); Eosinophils % 1.7 %; Hemoglobin 12.1 g/dL (11.5-15.4); Immature Granulocytes % 0.3 % (0-4); Lymphocytes # 2.5 K/mcL (0.6-4.6); Lymphocytes % 28.5 %; Mean Corpuscular HGB Conc 32.7 g/dL (31.6-35.5); Mean Corpuscular Hemoglobin 27.6 pg (28.0-33.3); Mean Corpuscular Volume 84.3 fL (83.0-100.0); Mean Platelet Volume 9.2 fL (9.4-12.4); Monocytes # 0.5 K/mcL (0.0-1.3); Monocytes % 5.4 %; Neutrophils # 5.6 K/mcL (1.6-8.9); Platelet Count 290 K/mcL (140-400); Red Blood Count 4.39 M/mcL (3.82-4.97); Red Cell Distribution Width 13.3 % (11.5-14.5); Segmented Neutrophils % 63.6 %
[2018-11-09 12:18] LABS: BUN/Creatinine Ratio 20 (6-26); Blood Urea Nitrogen 18 mg/dL (8-23); Calcium 9.3 mg/dL (8.6-10.3); Carbon Dioxide 31 mEq/L (23-29); Chloride 98 mEq/L (98-107); Glucose 106 mg/dL (70-105); Osmolality,Calculated 286 (280-300); Potassium 3.2 mEq/L (3.5-5.1); Sodium 137 mEq/L (136-145); eGFR For Non-African Americans > 60 (> 60)
[2018-11-09 12:19] LABS: Troponin I < 0.03 ng/mL (< 0.04)
[2018-11-09] MEDS ORDERED: 0.9 % Sodium Chloride 1,000 ML IVC ONE (12:21)
[2018-11-09] MEDS ORDERED: 0.9 % Sodium Chloride 1,000 ML ONE (12:32)
[2018-11-09] MEDS ORDERED: Isovue-370 500 ML BOTTLE IVP ONE (12:37)
[2018-11-09] MEDS ORDERED: 0.9 % Sodium Chloride 1,000 ML IVC STA (14:18)
[2018-11-09 14:50] LABS: ABG Base Excess 2 mEq/L (-2 to 3); ABG HCO3 26 mEq/L (21-27); ABG Oxygen Saturation 95 % (95-98); ABG PCO2 38 mmHg (35-45); ABG PH 7.45 pH Units (7.32-7.45); ABG PO2 71 mmHg (85-104); ABG TCO2 27 mEq/L (20-26)
[2018-11-09] MEDS ORDERED: Naloxone 0.4 MG/ML INJ IVP PRN ×2 (15:15→16:32)
--- NOTE | 2018-11-09 15:38 | Electrocardiograph Report ---
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
[2018-11-09] MEDS: clonazePAM 0.5 MG TABLET PO SCH (20:10)
[2018-11-09] MEDS: *HR* HYDROcodone/Acet 10/325 mg TABLET PO SCH (20:10)
[2018-11-09] MEDS ORDERED: *HR* HYDROcodone/Acet 10/325 mg TABLET PO SCH (21:00)
[2018-11-09] MEDS ORDERED: clonazePAM 0.5 MG TABLET PO SCH (21:00)
[2018-11-10] MEDS ORDERED: hydroCHLOROthiazide 25 MG TABLET PO SCH ×2 (09:00)
[2018-11-10] MEDS ORDERED: Cholecalciferol (D-3) 1,000 UNIT TABLET PO SCH ×2 (09:00)
[2018-11-10] MEDS: clonazePAM 0.5 MG TABLET PO SCH (09:12)
[2018-11-10] MEDS: *HR* HYDROcodone/Acet 10/325 mg TABLET PO SCH (09:14)
--- NOTE | 2018-11-10 11:48 | Internal Med History&Physical ---
Date of Encounter: 11/10/18 Time of Encounter: 11:20 Assessment and Plan (1) Hypoxemia Current visit: Yes Status: Acute Etiology not obvious. Room air oximetry will be checked 6 minute walk prior to discharge. (2) Hypokalemia Current visit: No Status: Acute Present on most labs since September 2016. Supplemental potassium will be given. Her blood pressure is borderline low so HCTZ will be held. (3) Hypertension Current visit: No Status: Chronic Blood pressure has been borderline low since admission. HCTZ will be held. Qualifiers: Hypertension type: essential hypertension Qualified Code(s): I10 - Essential (primary) hypertension (4) Low vitamin D level Current visit: No Status: Acute Vitamin D level was low at 9 on 10/22/2016. Her PCP can monitor. Internal Medicine - H&P: HPI Chief complaint: Hypoxemia Admitted From: Emergency Dept Plans for Post Hospital Care: Home History of present illness: Ms. Guido is a 68 year old female who was sent from her PCP office to emergency room for evaluation after room air oximetry at the PCP office showed 85% saturation. She denied dyspnea. Chest CTA in emergency room showed no pulmonary pathology. She was admitted to [facility] floor for ongoing care needs. She was hospitalized January 2018 [facility] with a similar history of hypoxemia found during a PCP office visit. Her oxygen saturation normalized during her brief [facility] stay and she did not require oxygen at discharge. Etiology of the transient hypoxemia was not determined. She is a lifelong nonsmoker and has no known chronic lung disease. She reports she has had a slight cough the past few weeks. She reports some family members had a "cold" approximately 2 weeks ago. She feels at her baseline now and wishes to be discharged home. 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 Psychiatric history: anxiety - Past Surgical History Surgical History: Additional surgical history: x3 - Social History Smoking Status: 2nd Hand Smoke Exposure Smokeless Tobacco Status: No Alcohol use: none Drug use: none Internal Medicine - H&P: Meds Ergocalciferol (VITAMIN D2) [Vitamin D2] 50,000 unit PO 2XW 02/06/18 [History] Hydrochlorothiazide [Microzide] 12.5 mg PO DAILY 02/06/18 [History] Hydrocodone/Acetaminophen [Hydrocodone-Acetamin 10-300 mg] 1 each PO TID 02/06/18 [History] Omeprazole [PriLOSEC] 20 mg PO DAILY 02/06/18 [History] clonazePAM [Clonazepam] 0.5 mg PO TID 02/06/18 [History] Potassium Chloride 10 meq PO BIDWM #60 tab.er.prt 02/07/18 [Rx] Allergy/AdvReac Type Severity Reaction Status Date / Time No Known Allergies Allergy Verified 10/07/18 16:08 All Systems PM: A 10-system review of systems was performed and is negative for pertinent findings except as documented above in the HPI. Review of systems: Review of systems from her January 2018 [facility] hospitalization were reviewed and revised as below. Gen.: Her weight has decreased from 109.769 kg January 2018 to present weight of 104.326 kg Cardiovascular: She has history of hypertension but no known IA heart failure angina DVT or pulmonary embolus. Respiratory: As per history of present illness GI: She has had cholecystectomy. She denies disorders of her liver or exocrine pancreas : She denies hematuria dysuria or kidney stones Neurologic: She denies large distribution strokes or seizures. Endocrine: She denies diabetes thyroid disease or hyperlipidemia Hematology/oncology: She reports history of anemia. She was not anemic on labs in emergency room. She denies internal malignancies or other blood disorders Psychiatric: She has anxiety and depression but denies other mental health diagnoses. [place] skeletal: She denies arthritis gout or other bone joint or muscle disorders. Review of archived labs show history of vitamin D deficiency. - Constitutional Vitals: Temp Pulse Resp BP Pulse Ox 98.2 F 86 16 93/54 93 11/10/18 10:42 11/10/18 10:42 11/10/18 10:42 11/10/18 10:42 11/10/18 10:42 Exam: Gen.: She is a well-developed well-nourished female lying in bed who appears in no acute distress at present time HEENT: Head is atraumatic and normocephalic. Eyes: EOMI. There is no scleral icterus. Mouth: Mucosa is moist. She is edentulous Neck: Supple and nontender. There is no thyromegaly or adenopathy noted. Heart: Regular without murmurs gallops or ectopics Lungs: No wheezes or crackles are heard. Abdomen: Soft and nontender. No masses or guarding are noted. Extremities: There is no cyanosis edema or clubbing noted. Dorsalis pedis and posterior tibial pulses are trace to 1+ palpable bilaterally. Neurologic: Mental status: She is talkative and a good historian. Cranial nerves: Smile is symmetric. Forehead wrinkles bilaterally. Tongue protrudes midline. EOMI. Motor: There is no pronator drift. Cerebellar: Finger to nose is intact bilaterally. Skin: Warm and dry Internal Med - H&P Results - Labs CBC & Chem 7: 11/09/18 11:55 11/09/18 11:55 Labs: Short CBC 11/09/18 Range/Units 11:55 WBC 8.8 (4.3-11.1) K/mcL Hgb 12.1 (11.5-15.4) g/dL Hct 37.0 (35.3-44.9) % Plt Count 290 (140-400) K/mcL Neutrophils # 5.6 (1.6-8.9) K/mcL BMP 11/09/18 11:55 Sodium 137 Potassium 3.2 L Chloride 98 Carbon Dioxide 31 H BUN 18 Creatinine 0.92 Glucose 106 H Calcium 9.3 Cardiac Enzymes 11/09/18 Range/Units 11:55 Troponin I < 0.03 (< 0.04) ng/mL - ABG Interpretation ABG results: 11/09/18 14:46 ABG pH 7.45 ABG pCO2 38 ABG pO2 71 L ABG HCO3 26 ABG Total CO2 27 H ABG O2 Saturation 95 ABG Base Excess 2 - Impressions ITS Impressions Chest X-Ray 11/09/18 11:28 IMPRESSION: Possible dilation of the ascending aorta, although the appearance of the mediastinum is similar in comparison to prior exam. Further evaluation with CT aortogram of the chest is recommended. D/ / Saran Aranda MD / Saran Aranda MD Interpreting Provider: Saran Aranda MD Chest CTA 11/09/18 12:37 IMPRESSION: Borderline dilated ascending aorta measuring 4.7 cm in greatest dimension. 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 D/ / Herrera Segal MD / Herrera Segal MD Interpreting Provider: Herrera Segal MD - VTE Reasons for not Prescribing Prophylaxis: Treatment not Indicated - Low risk for VTE
[2018-11-10 13:08] VITALS: BP 124/67
--- NOTE | 2018-11-10 14:38 | Discharge Summary ---
Date of Encounter: 11/10/18 Time of Encounter: 14:40 - Discharge Diagnosis (1) Hypoxemia Priority: Primary Status: Resolved (2) Hypokalemia Priority: Secondary Status: Acute (3) Hypertension Priority: Secondary Status: Chronic Qualifiers: Hypertension type: essential hypertension Qualified Code(s): I10 - Essential (primary) hypertension (4) Low vitamin D level Priority: Secondary Status: Acute Hospital course: Ms. Guido is a 68 year old female who was sent from her PCP office to emergency room for evaluation after room air oximetry at the PCP office showed 85% saturation. She denied dyspnea. Chest CTA in emergency room showed no pulmonary pathology. She was admitted to [facility] for ongoing care needs. Initial orders were written by the emergency room physician. I saw her on November 10 and performed a history and physical. When I saw her she did not feel dyspneic. Room air oximetry on 6 minute walk showed saturations remaining 93% o r higher. The etiology of hypoxemia at her PCP office was not determined with certainty. She felt stable for discharge home. HCTZ will be held because of borderline hypotension and anemia. Supplemental potassium will be continued at discharge and her PCP can monitor labs to ensure hypokalemia is corrected before discontinuing potassium. Vitamin D level was low at 9 on 10/22/2016. Her PCP can order follow-up labs and treat as needed. She will follow with Dr. Margarito Turpin within 1 week. - Time Spent with Patient Total time spent providing and/or coordinating discharge services: - Discharge Medications Prescriptions: Continue Hydrocodone/Acetaminophen [Hydrocodone-Acetamin 10-300 mg] 1 each PO TID clonazePAM [Clonazepam] 0.5 mg PO TID Omeprazole [PriLOSEC] 20 mg PO DAILY Ergocalciferol (VITAMIN D2) [Vitamin D2] 50,000 unit PO 2XW Potassium Chloride 10 meq PO BIDWM #60 tab.er.prt Discontinued Hydrochlorothiazide [Microzide] 12.5 mg PO DAILY Home Medications: Ergocalciferol (VITAMIN D2) [Vitamin D2] 50,000 unit PO 2XW 02/06/18 [History] Hydrocodone/Acetaminophen [Hydrocodone-Acetamin 10-300 mg] 1 each PO TID 02/06/18 [History] Omeprazole [PriLOSEC] 20 mg PO DAILY 02/06/18 [History] clonazePAM [Clonazepam] 0.5 mg PO TID 02/06/18 [History] Potassium Chloride 10 meq PO BIDWM #60 tab.er.prt 02/07/18 [Rx] Allergies/Adverse Reactions: Allergy/AdvReac Type Severity Reaction Status Date / Time No Known Allergies Allergy Verified 10/07/18 16:08 Date of admission: 11/09/18 15:34 Primary care physician: Margarito Turpin MD - Constitutional Vitals: Temp Pulse Resp BP Pulse Ox 97.4 F L 98 20 124/67 94 11/10/18 13:07 11/10/18 13:07 11/10/18 13:07 11/10/18 13:07 11/10/18 13:38 - Patient Status Disposition: Home, Self-Care Condition: Fair - Discharge Instructions Follow Up With: Margarito Turpin MD [Primary Care Provider] - 1 week (November 17, 2018 @ 10:45am Patria Contreras CNP) - Diet and Activity Activity: resume usual activities as tolerated Diet: advance to your usual diet - VTE Reasons for not Prescribing Prophylaxis: Treatment not Indicated - Low risk for VTE
== END 2018-11-10 15:31 | disposition home or self-care (01) ==
LOC: INPPIK 11:10 → EMEROOPIK 11:10 → INPPIK 16:06
PROVIDERS: ADMIT Internal Medicine; ATTEND Internal Medicine